=== PATIENT | male | born 1935 | race Caucasian/White ===

== ENCOUNTER → 2016-11-30 | Outpatient (CLI) | payer OTHER, MEDICARE | LOC: ULTRA 08:52 | DX: R41.82 Altered mental status, unspecified (principal); E11.9 Type 2 diabetes mellitus without complications ==

== ENCOUNTER → 2019-05-27 | Outpatient (CLI) | payer OTHER, MEDICARE | LOC: RAD 11:01 | DX: M25.751 Osteophyte, right hip (principal); M16.11 Unilateral primary osteoarthritis, right hip; M48.061 Spinal stenosis, lumbar region without neurogenic claudication; I70.0 Atherosclerosis of aorta; M48.04 Spinal stenosis, thoracic region; M25.78 Osteophyte, vertebrae; M43.16 Spondylolisthesis, lumbar region; M47.816 Spondylosis without myelopathy or radiculopathy, lumbar region ==

== ENCOUNTER 2020-04-24 15:46 | Inpatient (IN) | payer OTHER, MEDICARE ==
[~2020-04-24] VITALS: Ht 167.6 cm; Wt 66.4 kg
[2020-04-24 15:56] VITALS: BP 178/77
--- NOTE | 2020-04-24 16:03 | NUR ---
DR TUBBS CALLED AND STATED SHE WOULD LIKE UPDATES ON PT. CELL [phone]
[2020-04-24 16:26] LABS: ABSOLUTE NEUTROPHILS 5.9 thou/uL (1.4-8.2); BASOPHILS 0.2 % (0.0-2.0); HEMOGLOBIN 11.3 gm/dL (14.0-18.0); LYMPHOCYTES 9.5 % (24.0-44.0); MCH 29.3 pg (26.0-34.0); MCHC 33.2 g/dL (28.0-37.0); MCV 88.2 fL (80.0-100.0); MONOCYTES 7.5 % (1.0-8.0); PLATELET COUNT 275 thou/uL (150-400); POLYS 82.8 % (36.0-66.0); RBC 3.86 mil/uL (4.50-6.00); RDW 14.8 % (10.5-14.5); WBC 7.1 thou/uL (4.0-11.0)
[2020-04-24 16:34] LABS: CALCIUM 9.2 mg/dL (8.5-10.1); CREATININE 1.1 mg/dL (0.7-1.3); POTASSIUM 3.1 mmol/L (3.5-5.1)
[2020-04-24 16:44] LABS: ALBUMIN 3.3 g/dL (3.4-5.0); TOTAL BILIRUBIN 0.5 mg/dL (0.2-1.0); TOTAL PROTEIN 7.7 g/dL (6.4-8.2); TROPONIN-I 0.09 ng/mL (<0.06)
[2020-04-24 17:57] LABS: URINE BLOOD 2+ (Negative); URINE CLARITY CLEAR; URINE COLOR YELLOW; URINE GLUCOSE-RANDOM* NEGATIVE (Negative); URINE KETONES 2+ (Negative); URINE LEUKOCYTES-REFLEX NEGATIVE (Negative); URINE NITRITE-REFLEX NEGATIVE (Negative); URINE PROTEIN (DIPSTICK) 3+ (Negative); URINE SPECIFIC GRAVITY >= 1.030 (1.005-1.035); URINE UROBILINOGEN 0.2 E.U./dl (0.2-1.0)
[2020-04-24 17:59] LABS: ICTOTEST (BILI CONFIRMATORY) Negative (Negative); URINE BILIRUBIN NEGATIVE (Negative)
[2020-04-24 18:17] LABS: SQUAMOUS None Seen /LPF (0-3); URINE RBC 3-10 Few /HPF (0-2); URINE WBC-REFLEX 0-5 Rare /HPF (0-5)
[2020-04-24 18:18] LABS: BACTERIA-REFLEX 1-9 Few /HPF (None Seen); CASTS None Seen /LPF (None Seen); CRYSTALS None Seen /LPF (None Seen)
[2020-04-24 19:33] LABS: TSH 0.819 uIU/mL (0.358-3.740)
[2020-04-24] MEDS ORDERED: LIPITOR 20 MG T20 M1 PO (20:30)
[2020-04-24] MEDS ORDERED: CIPRO250 M2 PO (20:31)
[2020-04-24] MEDS ORDERED: CARDURA2 MG PO (20:31)
[2020-04-24] MEDS ORDERED: ULTRAM50 MG PO (20:32)
[2020-04-24] MEDS ORDERED: QUINAPRIL 20 MG20 MG PO (20:32)
[2020-04-24] MEDS ORDERED: METFORMIN HCL500 M3 PO (20:32)
[2020-04-24 20:34] VITALS: BP 151/71
--- NOTE | 2020-04-24 20:45 | NUR ---
ATTEMPTED TO CALL REPORT, REPORTS RN IN PATIENT ROOM PASSING MED WILL CALL BACK
[2020-04-24 21:16] VITALS: BP 151/71
[2020-04-24 21:34] VITALS: BP 167/87
--- NOTE | 2020-04-25 04:12 | NUR ---
NEW ADMIT FROM ER. AXOX1 HEAVILY CONFUSED AND IMPULSIVE. RIPPED IV OUT, RIPPED FOOD SAFETY MANAGER OUT. GOT OUT OF THE BED WITHOUGH ASSISTANCE AND URINATED ON THE FLOOR. MOVED CLOSER TO NURSING STATION FOR SAFETY AND FREQUENT OBSERVATION. IV ATB STARTED FOR UTI. STILL SHOUTS IN BED BUT SOMEHOW BETTER. NO S/S ACUTE DISTRESS NOTED OR REPORTED AT THIS TIME. WILL CONT TO MONITOR FOR ANY CHAANGES IN CONDITION.
[2020-04-25 05:21] VITALS: BP 180/54
[2020-04-25 07:30] VITALS: BP 147/82
--- NOTE | 2020-04-25 11:50 | NUR ---
Received awake on bed. Due medications given as prescribed, able to swallow meds w/o difficulty. On room air. Vital signs stable. On room air. On telemetry; no complains and signs of chest pain, crushing sensation and heaviness. On regular diet- tolerating well, assisted in eating and drinking; no nausea, no vomiting and no abdominal pain noted. On blood sugar monitoring, taken and recorded accordingly. Incontinent of bowel and bladder, checked frequently and changed as needed. With NS at 75cc/hr, infusing well at L FA. Falls bundle in place; turned on his sides regularly. To continue monitoring patient. Pt seen and examined by Dr Rosario, ordered MRI to be done; MRI staff called back and said that they won't be able to do it today, unless ordered STAT by Neurlogy; Dr Rosario informed and aware. CT scan to be done today, staff available- Dr Rosario updated. To continue monitoring patient.
[2020-04-25 16:05] VITALS: BP 134/69
[2020-04-25 20:48] VITALS: BP 155/70
[2020-04-26 04:45] VITALS: BP 169/70
[2020-04-26 07:35] VITALS: BP 164/83
--- NOTE | 2020-04-26 08:35 | NUR ---
progress tele intact but pt keeps removing and pulling out iv's . high fall risk d/t weakness and impulsivity trying to get oob without assistance. iv antibiotics given as ordered fall precautions in place continue poc
[2020-04-26 09:53] LABS: HEMOGLOBIN 10.5 gm/dL (14.0-18.0); MCH 29.3 pg (26.0-34.0); MCHC 33.7 g/dL (28.0-37.0); RBC 3.57 mil/uL (4.50-6.00); RDW 14.3 % (10.5-14.5); WBC 6.5 thou/uL (4.0-11.0)
[2020-04-26 10:07] LABS: CALCIUM 8.1 mg/dL (8.5-10.1); MAGNESIUM 1.3 mg/dL (1.8-2.4)
[2020-04-26 10:15] LABS: POTASSIUM 2.7 mmol/L (3.5-5.1)
[2020-04-26 13:52] VITALS: BP 109/75
[2020-04-26 15:03] VITALS: BP 140/77
--- NOTE | 2020-04-26 19:29 | NUR ---
RECEIVED A CALL FROM LAB PT'S COVID 19 POSITIVE. CALLED HOUSE SUP AND ELEMENTARY READING TUTOR NOELLE, HOSPITALIST. PT WILL BE MOVED TO ISOLATED UNIT. AWAITING BED ASSIGNMENT.
--- NOTE | 2020-04-26 20:35 | NUR ---
PT ORIENTED TO SELF, VSS, DENIES PAIN. POTASSIUM 2.8 DOCTOR AWARE AND STATED HE WILL PUT IN ORDERS. PATIENT LETHARGIC, REFUSED MEALS EXCEPT DINNER. MEDS GIVEN PER AUG, IV PATENT. SINUS RHYTHM TELE MONITOR. PT NEWLY POSITIVE FOR COVID, PATIENT HAS FEVER. PATIENT MOVED DOWN TO 3 WEST. NO SIGNS OF DISTRESS. WILL CONTINUE TO MONITOR.
[2020-04-26 20:50] VITALS: BP 166/74
[2020-04-27 01:30] VITALS: BP 184/91
--- NOTE | 2020-04-27 02:36 | NUR ---
PT ARRIVED FROM 4WEST THIS SHIFT COVID POSITIVE. AFEBRILE AND 96% ON RA. HIGH BP MEDICATION GIVEN SEE EMAR. URINAL AT BEDSIDE. BSG CHECKED AND INSULIN COVERAGE PROVIDED. PT A&OX2 FORGETFULL. FALL PREC IN PLACE. WILL CONT TO MONITOR.
[2020-04-27 03:00] VITALS: BP 171/87
[2020-04-27 03:50] VITALS: BP 163/88
[2020-04-27 06:11] LABS: HEMATOCRIT 31.5 % (42.0-52.0); HEMOGLOBIN 10.6 gm/dL (14.0-18.0); MCH 28.9 pg (26.0-34.0); MCHC 33.6 g/dL (28.0-37.0); MCV 86.1 fL (80.0-100.0); RBC 3.66 mil/uL (4.50-6.00); RDW 14.2 % (10.5-14.5); WBC 4.1 thou/uL (4.0-11.0)
[2020-04-27 06:34] LABS: ALBUMIN 2.4 g/dL (3.4-5.0); CREATININE 0.8 mg/dL (0.7-1.3); MAGNESIUM 1.7 mg/dL (1.8-2.4); POTASSIUM 3.4 mmol/L (3.5-5.1); TOTAL BILIRUBIN 0.2 mg/dL (0.2-1.0); TOTAL PROTEIN 6.5 g/dL (6.4-8.2)
[2020-04-27 06:35] LABS: % SATURATION 14 % (20-39); IRON 22 ug/dL (65-175); TIBC 155 ug/dL (250-450)
--- NOTE | 2020-04-27 07:06 | EKG ---
[facility] [place] [address] ELECTROCARDIOGRAM REPORT Name: TIMMY LEIJA Room #: 351-P ADM IN M.R.#: [id number] Admission: 04/24/20 Attend Phys: Kate Leblanc Discharge: Date of : 39 Report #: [id number] THIS REPORT FOR: cc: Jayna Holbrook MD, Nora P. MD Santiago, Patrick MD [facility] ~ THIS REPORT FOR: //name// [facility] ED Test Date: 2020-04-24 Test Time: 17:47:29 Pat Name: TIMMY LEIJA Department: Room: [facility] Gender: M Loader Demolder: : 1935 Requested By: Cely Vargas Order Number: [id number] MD: Jam Rodriges Measurements Intervals [place] Rate: 86 P: 40 CA: 192 QRS: -73 QRSD: 95 T: 133 QT: 377 QTc: 451 Interpretive Statements Sinus rhythm Abnormal R-wave progression, late transition Borderline repolarization abnormality Baseline wander in lead(s) V4,V5,V6 No previous ECG available for comparison Electronically Signed On 04-27-2020 7:06:08 AD CLERK by Jam Rodriges [email or web address] <ELECTRONICALLY SIGNED> By: Jam Rodriges MD, FACC 04/27/20 0706 46 46 Jam Rodriges MD, FAC /EPI
--- NOTE | 2020-04-27 13:37 | NUR ---
ASSUMED CARE AT 1335 FROM NURSE GARZA. PT OFF UNIT AT MRI AT THIS TIME.
[2020-04-27 14:34] VITALS: BP 148/72
[2020-04-27 15:24] VITALS: BP 143/66
--- NOTE | 2020-04-27 15:45 | NUR ---
INITIAL ASSESSMENT: LUCERO reviewed chart and spoke with nursing and attending physician. Pt was admitted from home due to weakness/dehydration. Pt was found down at home by his son. Pt was transferred to from due to having positive COVID-19 test. Pt is afebrile and not requiring O2. PT is on IV abx. Neuro/ID/Psych consulted. Pt to have MRI today. Therapy ordered to evaluate pt. Pt lives at home alone. 1 step to enter the home and 12 steps inside. Pt does have a cane. LUCERO spoke with pt's dtr, Diane, via phone. Introduced role of SW. Pt is normally alert/orientated and able to take care of himself at home. Family has noticed a decline in pt's condition over the past couple of years. Pt's dtr is in town from [place]. Pt's son, Ugo, lives locally. Pt has another son who lives out of the country. Pt has not had any HH services in the past or hx of post-acute placement. Pt's PCP is Dr. Jayna Holbrook. Pt's dtr states that family is agreeable with post-acute placement or home with HH and possible private duty care if needed. Pt has a halfway care insurance policy that Diane is looking into, to see what the policy covers. LUCERO discussed Medicare coverage for SNF placement and HH services. Pt's family would like to see how pt does over the next 1-2 days with therapy and receiving recommendations from physicians. LUCERO is following to assist as needed with discharge planning.
--- NOTE | 2020-04-27 19:15 | NUR ---
ASSUMED CARE AT 1300. PT WAS OFF UNIT WHEN RN ARRIVED AND TOOK OVER PT FOR REMAINDER OF SHIFT. ONCE PT ARRIVED BACK TO ROOM PT WAS VERY TALKATIVE WITH RN AND ANSWERED ORIENTATION QUESTIONS APPROPRIATELY. RN DID NOTICE HOWEVER PT REPEATS STORIES THAT HE IS TELLING AND DOES NOT REMEMBER THAT HE ALREADY TOLD THE SAME STORY JUST A FEW MINUTES PRIOR. BED ALARM IS SET AND PT WAS INSTRUCTED TO CALL RN PRIOR TO GETTING OUT OF BED. PT REPEATEDLY STANDS UP AND TRIES TO GET OUT OF BED PRIOR TO CALLING FOR HELP AND SETS OFF BED ALARM. PRIOR TO THIS RN TAKING OVER THIS PT AT 1300, PREVIOUS RN STATED THAT PT HAD PULLED OUT IV. THIS RN REQUESTED NEW IV BE PLACED BY IV TEAM. NEW IV WAS PLACED AT 1730 AND AT 1800 PT HAD ALREADY PULLED OUT 2ND IV OF THE DAY. RN ASKED PT WHY HE PULLED IT OUT AND HE STATED HE DID NOT NEED IT. PT WAS DRESSED IN HOME CLOTHES WHEN THIS RN ASSUMED CARE AND PT HAS SINCE REMOVED ALL CLOTHING OTHER THAN SHIRT. PT'S GAIT IS UNSTEADY AND REQUIRES USE OF GAIT BELT AND 1 ASSIST. PT DOES HOWEVER TRY AND GET UP ON HIS OWN EVEN IF BED ALARM GOES OFF.
[2020-04-27 20:10] VITALS: BP 160/76
--- NOTE | 2020-04-27 21:01 | NUR ---
1300- REPORT RECEIVED FROM ASHOK MAHAN. KAYLA STATES PT REMOVED TELEMETRY AND PULLED OUT HIS IV. KAYLA STATES SHE SPOKE WITH DR RODRIGUEZ AND HE STATED THAT IT WAS OKAY FOR PT NOT TO BE ON TELEMETRY. NO ORDERS HAVE BEEN PLACED IN THE COMPUTER TO REFLECT THIS VERBAL ORDER HOWEVER PT IS REFUSING TO HAVE TELEMETRY PUT BACK ON AT THIS TIME. WHEN PT RETURNED TO FLOOR FROM MRI THIS RN FOUND THAT HE HAD DISCONNECTED HIS IV BUT HAD NOT PULLED THE IV CATHETER OUT FROM UNDER HIS SKIN. THIS RN REMOVED HIS IV CATHETER. THAT WAS BROKEN FROM PATIENT. NEW IV PLACED AT 1730 BY FOREIGN COLLECTION CLERK, PT PULLED OUT NEW IV AT 1800.
[2020-04-28 05:37] VITALS: BP 191/83
--- NOTE | 2020-04-28 07:02 | NUR ---
PATIENT HAS NO IV ACCESS AND HE PULLED IT BEFORE THIS SHIFT STARTS.TRIED TO PLACE ANOTHER ONE BUT HE PULLED HIS ARM AWAY AND SAYS HE'S REFUSING TO BE STUCK.PATIENT ASSISTED TO THE BATHROOM BECAUSE HE REFUSED TO USE THE URINAL.PT UNSTEADY AND USES MUELLER TOO.PATIENT WHEEZING THIS AM AND DUONEB WAS GIVEN BY RT.POC CONTINUED.
[2020-04-28 07:14] VITALS: BP 175/91
[2020-04-28 10:06] LABS: HEMATOCRIT 32.9 % (42.0-52.0); HEMOGLOBIN 10.8 gm/dL (14.0-18.0); MCH 28.6 pg (26.0-34.0); MCHC 32.9 g/dL (28.0-37.0); MCV 87.1 fL (80.0-100.0); RBC 3.78 mil/uL (4.50-6.00); RDW 14.7 % (10.5-14.5); WBC 8.4 thou/uL (4.0-11.0)
[2020-04-28 10:22] LABS: CALCIUM 8.7 mg/dL (8.5-10.1); CREATININE 1.1 mg/dL (0.7-1.3); MAGNESIUM 1.6 mg/dL (1.8-2.4); POTASSIUM 3.3 mmol/L (3.5-5.1)
--- NOTE | 2020-04-28 12:23 | NUR ---
PT CARE ASSUMED AT 0700. A&Ox3. FORGETFUL EPISODES AND IMPULSIVE. NO IV AND OK WITH MD TO KEEP OUT. MEDS SWITCHED TO PO. ONETIME B12 SHOT GIVEN. ACHS WITH LOW SLIDING SCALE IN PLACE. UP WITH ONE ASSIST. PSYCH CONSULT ORDERED FOR COGNITION. FALL PROTOCOL IN PLACE. CALL LIGHT IN REACH. MEDS WHOLE WITH WATER. URINE SAMPLE COLLECTED. COVID POS. PER MD OK TO KEEP OFF OF MONITOR. UP IN THE RECLINER FOR VERY SHORT PERIOD. REFUSES ALL IV MEDICATIONS AND TO HAVE A IV PLACED. WILL CONTINUE TO MONITOR. SHOWER REFUSED. BED CHAGED DUE TO INCONTINENT EPISODES.
[2020-04-28 15:07] VITALS: BP 187/104
--- NOTE | 2020-04-28 15:31 | NUR ---
LUCERO reviewed chart and spoke with nursing and attending physician. Pt remains in Enhanced Isolation due to COVID-19. Pt is afebrile and not requiring O2. Pt is on IV abx. Neurospsych consulted today. SW received copy of pt's DPOA ppwk and placed on pt's chart. Pt refused to work with therapy earlier today. Pt's family to discuss with pt the importance of participating with therapy in order to assess what his discharge need will be. Awaiting input from neuro psych and therapy at this time. LUCERO placed call into pt's room. No answer. LUCERO is following to assist as needed with discharge planning.
[2020-04-28 19:43] VITALS: BP 137/87
--- NOTE | 2020-04-28 22:35 | NUR ---
PT ALERT RESTING IN BED. PT FREQUENTLY AND IMPULSIVELY GETS OOB, CONFUSED R/T LOCATION AND TIME. PRN PROVIDED. PT TAKING OFF CLOTHES AND SHEETS. BED ALARM ON. PT COMPLIANT WITH MEDS AND SNACK. PT LUNGS ARE CLEAR BUT NASAL NOISE AND GUTTERAL NOISE CLEARED WHEN HE COUGHS. PT VERBALLY AGGRESSIVE AFTER INSULIN BUT ABLE TO BE REDIRECTED. PT REPEATS THE SAME QUESTIONS AND STATEMENTS RE ARE YOU , DO YOU HAVE ANY CHILDREN, WILL YOU GET IN BED WITH ME.
[2020-04-29 05:21] VITALS: BP 136/93
--- NOTE | 2020-04-29 07:43 | NUR ---
BPCI LETTER ISSUED TO PATIENT IN CONJUNCTION WITH ADMISSION PACKET COPY GIVEN BY REGISTRATION
[2020-04-29 08:34] VITALS: BP 192/98
[2020-04-29 08:40] VITALS: BP 186/93
--- NOTE | 2020-04-29 10:05 | NUR ---
PATIENT RESTING IN BED IS NOT COMPLIANT WITH MEDS BUT WITH ENCOURAGEMENT TOOK MEALS STATES DOES NOT WANT TO BE IN HOSPITAL. STATES NO PAIN OR RESP DISTRESS AT THIS TIME,
--- NOTE | 2020-04-29 14:21 | NUR ---
PATIENT SPOKE WITH DAUGHTER BREA [phone] THIS NURSE ALSO SPOKE WITH DAUGHTER WHO WILL BRING LONGER LONGER PHONE CORD SO PATIENT CAN CHARGE CELL PHONE. PT FORGETS THINGS AND IS CONFUSED AT TIMES.
--- NOTE | 2020-04-29 15:04 | NUR ---
LUCERO reviewed chart and spoke with nursing and attending physician. Pt remains in ENhanced Isolation due to COVID-19. Pt is afebrile and not requiring O2. Pt is on IV abx. Neurospych consult pending. LUCERO spoke with pt's dtr, Diane, via phone to provide update and discuss discharge plan. Pt's dtr states they are wanting to see how pt does with therapy and input from neuropsych. LUCERO discussed with therapy mgr to have therapists call pt's dtr/family if pt refuses therapy. Diane was going to call pt earlier today to encourage pt to participate. LUCERO discussed plans for home with HH/24 hour care v. post acute care stay. Pt's dtr states they are open to all suggestions at this time. Options provided for HH/private duty and SNF options. Pt's dtr requests referrals to be sent to [facility] and [facility]. 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 LUCERO faxed referral to [facility] and spoke with Reymundo who will review and contact family regarding LTC policy. LUCERO faxed referral to [facility] and notified Judith in admissions or new referral. Awaiting input from therapy adn neuropsych at this time. LUCERO is following to assist as needed with discharge planning.
[2020-04-29 16:01] VITALS: BP 151/81
[2020-04-29 19:27] VITALS: BP 147/80
--- NOTE | 2020-04-29 21:16 | HC ---
[facility] [place] [place] [address] CONSULTATION Name: TIMMY LEIJA Room #: 351-P [facility] IN ..#: [id number] Admission: 04/24/20 Attend Phys: Kate Leblanc Discharge: Date of : 39 Report #: [id number] THIS REPORT FOR: cc: Jayna Holbrook MD, Nora P. MD Geha,Beto Schrader MD ~ DATE OF SERVICE: 04/27/2020 INFECTIOUS DISEASE CONSULTATION REASON FOR CONSULTATION: I was asked to evaluate concerning COVID-19 infection. HISTORY OF PRESENT ILLNESS: The patient is an 85-year-old with underlying history of diabetes and chronic prostatitis. He has had issues with altered mental status and falls. On 04/26/2020, he fell in the morning. He was helped up by his son. He fell later in the afternoon and was brought in by EMS. He was unable to get up. He lives alone, but is cared for by his son. He does ambulate with a cane on occasion. He has had a history of diabetes, hypertension and coronary artery disease. He reports no loss of consciousness. Denies any head injury. He does have chronic prostatitis and takes Cipro on a regular basis. Denies any fever, chills or sweats. He was doing reasonably well this afternoon, but this evening again became confused and inappropriate. He was evaluated with the nursing staff at the bedside. The patient was disoriented. He was able to tell me history of his past, but it was poor on current events. REVIEW OF SYSTEMS: A 14-point review of system was negative other than what has been described above. ALLERGIES: CODEINE. MEDICATIONS: As noted on his MAR. PAST MEDICAL HISTORY: Chronic prostatitis, sciatica, diabetes, [place], chronic back pain. SOCIAL HISTORY: He is a nonsmoker, no significant alcohol intake. PHYSICAL EXAMINATION: VITAL SIGNS: He was afebrile and hemodynamically stable. GENERAL: He is alert and cooperative, but confused. SKIN: With several abrasions to his left lower leg. No palpable adenopathy. EYES: Without scleral icterus. MOUTH: Without mucositis. [facility] [address] [place] [address] CONSULTATION Name: TIMMY LEIJA Room #: 351-P [facility] IN ..#: [id number] Admission: 04/24/20 Attend Phys: Kate Leblanc Discharge: Date of : 39 Report #: [id number] NECK: Supple. LUNGS: Clear. HEART: Regular without murmur, gallop or rub. ABDOMEN: Soft and nontender. No hepatosplenomegaly or mass. GENITOURINARY: External genitalia without mass or lesion. RECTAL: Not performed. EXTREMITIES: With no clubbing, cyanosis or edema. BACK: Nontender with no spinal or CVA tenderness. NEUROLOGIC: Nonfocal. He was a bit unsteady on his gait, but cranial nerves were intact and strength in upper and lower extremities was symmetric. Mood was without anxiety or depression. LABORATORY DATA: Reviewed. MICROBIOLOGY DATA: Reviewed. CT scan of his head and chest x-ray reviewed. MRI scan of the spine reviewed. IMPRESSION: COVID-19 infection. Basilar atelectasis versus infiltrate, possible community-acquired pneumonia, confusional state. Unsteady with multiple falls. Underlying spinal stenosis. Chronic urinary tract infection, suspecting chronic prostatitis. RECOMMENDATION: We will continue ceftriaxone and azithromycin for now. He does not fulfill criteria for antiviral therapy at this point, although would treat him with H2 ulysses and multiple vitamins. We will check vitamin D level. We will await Neurology service evaluation. <ELECTRONICALLY SIGNED> By: Beto Sexton MD 04/29/202115 35 01 Beto Sexton MD /nt
[2020-04-30 03:50] VITALS: BP 158/79
--- NOTE | 2020-04-30 04:47 | NUR ---
ASSUMED CARE OF PT AT 1900HRS. PT AOX3-4 AND IS FORGETFUL. FALL PRECAUTION IN PLACE BUT PT IS NOT COMPLIENT. PT DENIES PAIN, NAUSEA OR SOA. ASSESSMENT CHARTED. PT IS ON RA IN M/S STATUS. PT WAS ABLE TO GET COMFORTABLE AND SLEEP PART OF THE SHIFT. VSS AND NO S/S OF ACUTE DISTRESS. WILL CONTINUE TO MONITOR FOR CHANGES.
[2020-04-30 07:22] VITALS: BP 148/89
[2020-04-30 15:19] VITALS: BP 171/93
[2020-04-30 18:47] VITALS: BP 148/70
[2020-04-30 19:38] VITALS: BP 118/53
--- NOTE | 2020-04-30 23:41 | NUR ---
PT CONFUSED ATTEMPTS TO GET OOB FREQUENTLY DESPITE HALDOL AND MELATONIN. INC OF URINE IN LG AMTS IN THE BED. PT IS FORGETFUL AND THINKS HE NEEDS TO URINATE ALL THE TIME. BED ALARM IS ON. WILL CONTINUE TO MONITOR FOR CHANGES, VSS.
[2020-05-01 04:52] VITALS: BP 156/90
--- NOTE | 2020-05-01 05:47 | NUR ---
PT CONTINUES TO BE CONFUSED AND ATTEMPTS TO GET OOB WITHOUT HELP SEVERAL TIMES. HE FINALLY FELL ASLEEP LATE THIS AM AROUND 0400. BED ALARM IS ON. REINFORCED FALL PRECAUTIONS SEVERAL TIMES.
[2020-05-01 07:50] VITALS: BP 147/73
[2020-05-01 08:06] VITALS: BP 147/73
--- NOTE | 2020-05-01 11:30 | NUR ---
discussed during prime time via phone call with bedside nurse "md said dc yunior"/bedside nurse. cm team to set up dc for today to skilled at [facility].
[2020-05-01] MEDS ORDERED: VITAMIN D325 MC1 PO (12:05)
[2020-05-01] MEDS ORDERED: VITAMIN C1000 MG PO (12:05)
[2020-05-01] MEDS ORDERED: B-12500 MCG PO (12:05)
[2020-05-01] MEDS ORDERED: ZINC SULFATE 2220 MG PO (12:07)
[2020-05-01] MEDS ORDERED: LOPRESSOR50 PO (12:07)
--- NOTE | 2020-05-01 12:56 | NUR ---
PT DISCHARGING TODAY TO [facility]ED [facility]. FAXED DC ORDERS/SUMMARY TO FACILITY SPOKE WITH CHRISTIE IN ADM SHE RECEIVED ORDERS AND ARRANGED TRANSPORT BY [facility] FOR [id number] TODAY. NOTIFIED PT'S SON (IRIS) OF DC AND TIME OF TRANSPORT HE WILL NOTIFY HIS SISTER. UNIT NOTIFIED AND CHART COPY PER US RN TO CALL REPORT TO [phone].
[2020-05-01 13:25] LABS: URINE BILIRUBIN NEGATIVE (Negative); URINE BLOOD TRACE (Negative); URINE CLARITY CLEAR; URINE COLOR YELLOW; URINE GLUCOSE-RANDOM* NEGATIVE (Negative); URINE KETONES NEGATIVE (Negative); URINE LEUKOCYTES-REFLEX TRACE (Negative); URINE NITRITE-REFLEX NEGATIVE (Negative); URINE PROTEIN (DIPSTICK) NEGATIVE (Negative); URINE SPECIFIC GRAVITY <= 1.005 (1.005-1.035); URINE UROBILINOGEN 0.2 E.U./dl (0.2-1.0)
[2020-05-01] MEDS ORDERED: DEPAKOTE 250MG250 M1 PO (14:25)
[2020-05-01] MEDS ORDERED: SEROQUEL 50 MG50 MG PO (14:30)
--- NOTE | 2020-05-01 16:36 | NUR ---
RN ASSUMED PT'S CARE AT 0700AM, PT IS CONFUSED, PT IS IMPULSIVE AT TIME, PT CAN FOLLOW SOME COMMANDS, PT'S VS ARE STABLE, PT DOES NOT HAVE SOB AND FEVER, RN RECEIVED ORDER TO DC PT TO [facility], RN HAS GIVING REPORT , PT'S FAMILY HAS NOTIFIED, PT JUST LEFT FLOOR DC TO REHAB CENTER BY W/C AT 1640PM.
[2020-05-02 04:06] LABS: GLYCOHEMOGLOBIN (HGB A1C) 7.2 % (4.8-5.6)
== END 2020-05-01 16:45 | DRG 871 ==
LOC: ER 15:46 → 3W 19:32 → 4W 19:32 → EROBS 19:32 → 4W 21:14 → 3W 04-26 19:50
PROVIDERS: Hospitalist; Internal Medicine; Physician Assistant; ADMIT Hospitalist; ATTEND Hospitalist
DX: A41.89 Other specified sepsis (principal); U07.1 COVID-19; J12.89 Other viral pneumonia; G93.41 Metabolic encephalopathy; N39.0 Urinary tract infection, site not specified; G95.9 Disease of spinal cord, unspecified; J98.11 Atelectasis; R27.0 Ataxia, unspecified; G83.14 Monoplegia of lower limb affecting left nondominant side; E11.9 Type 2 diabetes mellitus without complications; D64.9 Anemia, unspecified; E87.6 Hypokalemia; E86.0 Dehydration; G89.29 Other chronic pain; R41.9 Unspecified symptoms and signs involving cognitive functions and awareness; I10 Essential (primary) hypertension; M54.5 Low back pain; Z60.2 Problems related to living alone; M48.02 Spinal stenosis, cervical region; M48.061 Spinal stenosis, lumbar region without neurogenic claudication; E53.8 Deficiency of other specified B group vitamins; E87.8 Other disorders of electrolyte and fluid balance, not elsewhere classified; G47.00 Insomnia, unspecified; E55.9 Vitamin D deficiency, unspecified; M47.9 Spondylosis, unspecified; F09 Unspecified mental disorder due to known physiological condition; G31.9 Degenerative disease of nervous system, unspecified; Z79.82 Long term (current) use of aspirin; Z79.899 Other long term (current) drug therapy; Z88.6 Allergy status to analgesic agent
CPT/HCPCS: 10040; 10779; 10879

== ENCOUNTER 2020-06-27 17:10 | Inpatient (IN) | payer OTHER, MEDICARE ==
[~2020-06-27] VITALS: Ht 152.4 cm; Wt 59.9 kg
--- NOTE | ~2020-06-27 | EMS ---
[address] [address] EMS Patient Care Report Name: TIMMY LEIJA Room #: REG MADDI Munoz#: [id number] Admission: 06/27/20 Attend Phys: Discharge: Date of : 39 Report #: [id number] THIS REPORT FOR: //name// Report Transmitted: 06/27/2020 18:43 EMS Care Summary [facility] MED-ACT Incident [id number] @ 06/27/2020 16:39 Incident Location [address] [place] [address] Patient TIMMY LEIJA Male, 85 Years 1935 Patient Address [address] [place] [address] Patient History Urinary Tract Infection (UTI),Hypokalemia,Type 2 Diabetes, Patient Allergies Codeine, Patient Medications Cyanocobalamin Co57, Atorvastatin, Chief Complaint "He is more altered than normal" Disposition Transported No Lights/[place] Dispatch Reason Sick Person Transported To [facility] Narrative Complaint: "He is more altered than normal" and not taking his medications [address] [address] EMS Patient Care Report Name: TIMMY LEIJA Room #: REG Tammy#: [id number] Admission: 06/27/20 Attend Phys: Discharge: Date of : 39 Report #: [id number] History: MD on scene advises EMS that the patient is more altered than normal and that he has been refusing his medications for the past few days. She reports that she would like him to go the ER for an evaluation and possibly get a "bag of fluids". She reports that he was less confused when she saw him last week and appears more confused today. They report his blood glucose to be 417 mg/dl. Pt has no complaints of pain and is yelling at anyone that is around him "I want to go to my room!". When patient is advised that he needs to go to the hospital, he is aggravated and yelling "come on, lets go". Assessment: Pt found sitting upright in wheelchair, pt has no obvious s / s of acute distress, no obvious s / s of trauma noted. Rendered Treatment: Pt evaluated, history obtained, vitals attempted but difficult time obtaining BP from monitor. Pt assisted to cot, secured and moved to unit, manual BP obtained. Transport: Vitals re-assessed, bio-com report given to ER. Destination: Pt transported to [facility] ER via EMS. Pt care transferred to RN in ER room 12 with no changes en route. Pt moved to ER bed via 3 person sheet drag. Initial Vitals @16:57P: 82,R: 18,BP: 80/50,Pain: 0/10,GCS: 14,Temp: 98.1F,Glucose: 417,SpO2: 97,Revised Trauma: 11, Assessments @17:00MENTAL:Person Oriented,Place Oriented,SKIN:HEENT:Head/Face: No Abnormalities,Eyes: No Abnormalities,LUNG SOUNDS:General: No Abnormalities,ABDOMEN:General: No Abnormalities,PELVIS//GI:EXTREMITIES:Left Arm: No Abnormalities,Right Arm: No Abnormalities,Left Leg: No Abnormalities,Right Leg: No Abnormalities,PULSE:NEURO:No Abnormalities, Impression Altered Mental Status Procedures @16:55Surgical Mask on PatientResponse: Unchanged Timeline 16:37,Call Received 16:37,Psap Call 16:39,Dispatched 16:39,En Route 16:43,On Scene [address] [address] EMS Patient Care Report Name: TIMMY LEIJA Room #: REG [facility].R.#: [id number] Admission: 06/27/20 Attend Phys: Discharge: Date of : 39 Report #: [id number] 16:47,At Patient 16:55,Surgical Mask on Patient,Response: Unchanged 16:57,BP: 80/50 M,PULSE: 82,RR: 18 R,SPO2: 97 Ox,ETCO2: ,B,PAIN: 0,GCS: 14, 16:58,Depart Scene 17:06,At Destination 17:26,Call Closed Disclaimer v1.1 Copyright 2020 [employer] This EMS Care Summary contains data elements from the applicable legal record (which may be displayed differently). It is designed to provide pertinent information for the following purposes: continuity of care, clinical quality, and state data reporting. The complete legal record is available to ED staff and administrators of the receiving hospital in [employer]'s Patient Tracker. All data is provided "as is."
--- NOTE | ~2020-06-27 | EMS ---
[address] [address] EMS Patient Care Report Name: TIMMY LEIJA Room #: REG MADDI Munoz#: [id number] Admission: 06/27/20 Attend Phys: Discharge: Date of : 39 Report #: [id number] THIS REPORT FOR: //name// Report Transmitted: 06/27/2020 17:48 EMS Care Summary [facility] MED-ACT Incident [id number] @ 06/27/2020 16:39 Incident Location [address] [place] [address] Patient TIMMY LEIJA Male, 85 Years 1935 Patient Address [address] [place] [address] Patient History Urinary Tract Infection (UTI),Hypokalemia,Type 2 Diabetes, Patient Allergies Codeine, Patient Medications Cyanocobalamin Co57, Atorvastatin, Chief Complaint "He is more altered than normal" Disposition Transported No Lights/[place] Dispatch Reason Sick Person Transported To [facility] Narrative Complaint: "He is more altered than normal" and not taking his medications [address] [address] EMS Patient Care Report Name: TIMMY LEIJA Room #: REG Tammy#: [id number] Admission: 06/27/20 Attend Phys: Discharge: Date of : 39 Report #: [id number] History: MD on scene advises EMS that the patient is more altered than normal and that he has been refusing his medications for the past few days. She reports that she would like him to go the ER for an evaluation and possibly get a "bag of fluids". She reports that he was less confused when she saw him last week and appears more confused today. They report his blood glucose to be 417 mg/dl. Pt has no complaints of pain and is yelling at anyone that is around him "I want to go to my room!". When patient is advised that he needs to go to the hospital, he is aggravated and yelling "come on, lets go". Assessment: Pt found sitting upright in wheelchair, pt has no obvious s / s of acute distress, no obvious s / s of trauma noted. Rendered Treatment: Pt evaluated, history obtained, vitals attempted but difficult time obtaining BP from monitor. Pt assisted to cot, secured and moved to unit, manual BP obtained. Transport: Vitals re-assessed, bio-com report given to ER. Destination: Pt transported to [facility] ER via EMS. Pt care transferred to RN in ER room 12 with no changes en route. Pt moved to ER bed via 3 person sheet drag. Initial Vitals @16:57P: 82,R: 18,BP: 80/50,Pain: 0/10,GCS: 14,Temp: 98.1F,Glucose: 417,SpO2: 97,Revised Trauma: 11, Assessments @17:00MENTAL:Person Oriented,Place Oriented,SKIN:HEENT:Head/Face: No Abnormalities,Eyes: No Abnormalities,LUNG SOUNDS:General: No Abnormalities,ABDOMEN:General: No Abnormalities,PELVIS//GI:EXTREMITIES:Left Arm: No Abnormalities,Right Arm: No Abnormalities,Left Leg: No Abnormalities,Right Leg: No Abnormalities,PULSE:NEURO:No Abnormalities, Impression Altered Mental Status Procedures @16:55Surgical Mask on PatientResponse: Unchanged Timeline 16:37,Call Received 16:37,Psap Call 16:39,Dispatched 16:39,En Route 16:43,On Scene [address] [address] EMS Patient Care Report Name: TIMMY LEIJA Room #: REG [facility].R.#: [id number] Admission: 06/27/20 Attend Phys: Discharge: Date of : 39 Report #: [id number] 16:47,At Patient 16:55,Surgical Mask on Patient,Response: Unchanged 16:57,BP: 80/50 M,PULSE: 82,RR: 18 R,SPO2: 97 Ox,ETCO2: ,B,PAIN: 0,GCS: 14, 16:58,Depart Scene 17:06,At Destination 17:26,Call Closed Disclaimer v1.1 Copyright 2020 [employer] This EMS Care Summary contains data elements from the applicable legal record (which may be displayed differently). It is designed to provide pertinent information for the following purposes: continuity of care, clinical quality, and state data reporting. The complete legal record is available to ED staff and administrators of the receiving hospital in [employer]'s Patient Tracker. All data is provided "as is."
[~2020-06-27 17:10] MED LIST: B-12500 MCG PO; CARDURA2 MG PO; CIPRO250 M2 PO; DEPAKOTE 250MG250 M1 PO; LIPITOR 20 MG T20 M1 PO; LOPRESSOR50 PO; METFORMIN HCL500 M3 PO; QUINAPRIL 20 MG20 MG PO; SEROQUEL 50 MG50 MG PO; ULTRAM50 MG PO; VITAMIN C1000 MG PO; VITAMIN D325 MC1 PO; ZINC SULFATE 2220 MG PO
[2020-06-27 17:11] VITALS: BP 97/46
[2020-06-27 17:41] LABS: URINE BILIRUBIN NEGATIVE (Negative); URINE BLOOD TRACE (Negative); URINE CLARITY CLEAR; URINE COLOR YELLOW; URINE GLUCOSE-RANDOM* 3+ (Negative); URINE KETONES NEGATIVE (Negative); URINE LEUKOCYTES-REFLEX NEGATIVE (Negative); URINE NITRITE-REFLEX NEGATIVE (Negative); URINE PROTEIN (DIPSTICK) NEGATIVE (Negative); URINE SPECIFIC GRAVITY 1.015 (1.005-1.035); URINE UROBILINOGEN 0.2 E.U./dl (0.2-1.0)
[2020-06-27 19:18] LABS: ABSOLUTE NEUTROPHILS 7.2 thou/uL (1.4-8.2); BASOPHILS 0.5 % (0.0-2.0); EOSINOPHILS 1.2 % (0.0-3.0); HEMATOCRIT 31.2 % (42.0-52.0); LYMPHOCYTES 15.1 % (24.0-44.0); MCH 29.1 pg (26.0-34.0); MONOCYTES 6.9 % (1.0-8.0); PLATELET COUNT 442 thou/uL (150-400); POLYS 76.3 % (36.0-66.0); RBC 3.43 mil/uL (4.50-6.00); WBC 9.5 thou/uL (4.0-11.0)
[2020-06-27 19:28] LABS: ANION GAP 8 mmol/L (7-16); BUN 56 mg/dL (7-18); CALCIUM 9.4 mg/dL (8.5-10.1); CHLORIDE 102 mmol/L (98-107); CO2 27 mmol/L (21-32); CREATININE 2.2 mg/dL (0.7-1.3); GLUCOSE 249 mg/dL (74-106); POTASSIUM 5.2 mmol/L (3.5-5.1); SODIUM 137 mmol/L (136-145)
[2020-06-27 19:39] LABS: ALBUMIN 2.9 g/dL (3.4-5.0); SGOT 20 U/L (15-37); SGPT 34 U/L (16-63); TOTAL BILIRUBIN 0.4 mg/dL (0.2-1.0); TOTAL PROTEIN 6.7 g/dL (6.4-8.2); TROPONIN-I <0.06 ng/mL (<0.06)
[2020-06-28] VITALS (7 sets, daily range): BP systolic 97–108; BP diastolic 40–64
[2020-06-28] MEDS ORDERED: DONEPEZIL HCL 55 M1 PO (01:43)
[2020-06-28] MEDS ORDERED: TRAZODONE HCL50 MG PO (01:47)
[2020-06-28] MEDS ORDERED: MIRTAZAPINE7.5 MG PO (01:49)
--- NOTE | 2020-06-28 07:13 | NUR ---
PER NETWORK ACCOUNT MANAGER, PT HAS BEEN CLEARED FOR ADMISSION BY VS RN
--- NOTE | 2020-06-28 10:17 | EKG ---
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 : 1935 Requested By: Rodrick Hardy Order Number: [id number] MD: Jean Paul Brunner Measurements Intervals [place] Rate: 72 P: 27 MT: 202 QRS: -64 QRSD: 87 T: 117 QT: 421 QTc: 461 Interpretive Statements Sinus rhythm Left anterior fascicular block Abnormal R-wave progression, late transition Abnrm T, consider ischemia, anterolateral lds Baseline wander in lead(s) V1 Compared to ECG 04/24/2020 17:47:29 Electronically Signed On 06-28-2020 10:17:37 LONGWALL MACHINE OPERATOR HELPER by Jean Paul Brunner [email or web address] <ELECTRONICALLY SIGNED> By: Jean Paul Brunner MD 06/28/20 1017 25 25 Jean Paul Brunner MD /EPI
--- NOTE | 2020-06-28 11:29 | NUR ---
HEPARIN TO BE HELD PER DR CORADO
[2020-06-29 05:58] VITALS: BP 105/60
--- NOTE | 2020-06-29 07:49 | NUR ---
PATIENT CARE WERE ASSUMED AT [facility]. PATIENT WAS ASSESSED AND MEDS WERE PASSED ALLOWED BY PATIENT. HE WOUND NOT LET ME GIVE HEPARIN SHOT AFER HE DID AGREE. YELLS TO GET OUT OF HIS ROOM. WAS ABLE TO CARRY SOME ORDERS OUT. IF MOST MED COUD BE IVP IT WOULD BE HELPFUL FOR NURSING. PATIENT IS FROM [facility].
[2020-06-29 08:39] VITALS: BP 119/49
[2020-06-29 09:59] LABS: ABSOLUTE NEUTROPHILS 6.1 thou/uL (1.4-8.2); BASOPHILS 0.9 % (0.0-2.0); EOSINOPHILS 2.1 % (0.0-3.0); HEMATOCRIT 28.9 % (42.0-52.0); HEMOGLOBIN 9.3 gm/dL (14.0-18.0); LYMPHOCYTES 16.5 % (24.0-44.0); MCH 29.6 pg (26.0-34.0); MCHC 32.4 g/dL (28.0-37.0); MCV 91.6 fL (80.0-100.0); MONOCYTES 4.7 % (1.0-8.0); POLYS 75.8 % (36.0-66.0); RBC 3.15 mil/uL (4.50-6.00); RDW 17.5 % (10.5-14.5)
[2020-06-29 10:00] LABS: PLATELET COUNT 360 thou/uL (150-400)
--- NOTE | 2020-06-29 10:04 | NUR ---
PATIENT REFUSES CARE. REFUSES REASSESSMENT FROM RN.
[2020-06-29 10:16] LABS: CALCIUM 8.6 mg/dL (8.5-10.1); CREATININE 1.6 mg/dL (0.7-1.3); POTASSIUM 4.1 mmol/L (3.5-5.1)
[2020-06-29 11:39] VITALS: BP 112/49
[2020-06-29 16:35] VITALS: BP 112/44
[2020-06-29 20:03] VITALS: BP 119/70
[2020-06-30 07:00] VITALS: BP 140/70
[2020-06-30 07:30] VITALS: BP 130/67
--- NOTE | 2020-06-30 07:52 | NUR ---
PT SLEPT SOME OF THE NIGHT. ALERT TO SELF; SOMETIMES PLACE. NEEDS REOREINTED FREQUENTLY. PT REFUSED CARE IN THE MIDDLE OF THE NIGHT AND ASKED WHY I WAS IN HIS HOUSE. ASSESSMENTS CHARTED. MEDS GIVEN PER EMAR. PT HAS JERNIGAN. FALL PRECAUTIONS IN PLACE. CONTINUING TO ASSESS ACCORDING TO POC.
[2020-06-30 08:56] LABS: HEMATOCRIT 29.9 % (42.0-52.0); HEMOGLOBIN 9.9 gm/dL (14.0-18.0); MCH 30.4 pg (26.0-34.0); MCHC 33.1 g/dL (28.0-37.0); MCV 91.8 fL (80.0-100.0); RBC 3.26 mil/uL (4.50-6.00); RDW 17.2 % (10.5-14.5); WBC 7.4 thou/uL (4.0-11.0)
[2020-06-30 09:27] LABS: ALBUMIN 2.5 g/dL (3.4-5.0); CALCIUM 8.7 mg/dL (8.5-10.1); CREATININE 1.4 mg/dL (0.7-1.3); PHOSPHORUS 2.4 mg/dL (2.6-4.7); POTASSIUM 3.9 mmol/L (3.5-5.1)
[2020-06-30 12:00] VITALS: BP 127/69
--- NOTE | 2020-06-30 15:01 | NUR ---
Patient admits from [facility] with AMS. Patient has been to [facility] for skilled rehab and recently transferred to [facility]. Patient with hx of COVID positive. Patient sleeping. Sp with Tatianna at [facility] and son Ugo. Plan for patient to return to [facility] once stable. [facility] does not need a covid test for return. DC facilities planner to update with clinical. Therapy evals in process. Casemgt following.
[2020-06-30 16:00] VITALS: BP 141/55
--- NOTE | 2020-06-30 16:42 | NUR ---
FAXED CLINICAL UPDATE TO [facility] RECEIVED CONFIRMATION AND LEFT MSG WITH ADM.
--- NOTE | 2020-06-30 20:11 | NUR ---
ASSUMED CARE OF PT AT SHIFT CHANGE. ASSESSMENTS CHARTED. MEDS GIVEN PER AUG. PT ALERT TO SELF, CONFUSED, FORGETFUL. PT APPROPRIATE MOST OF SHIFT. PT UNSTABLE ON FEET, X1 ASSIST WITH WALKER. WORKING WITH OT, PT. WILL CONTINUE TO MONITOR AND FOLLOW POC.
[2020-06-30 20:22] VITALS: BP 141/55
[2020-06-30 20:45] VITALS: BP 145/70
[2020-07-01 04:55] VITALS: BP 146/56
--- NOTE | 2020-07-01 07:47 | NUR ---
ASSUMED OT CARE AT 1900. AT SHIFT CHANGE PT SEEMED PLEASANT, WHEN I WENT TO PT/S ROOM AROUNG 2119, PT WAS DISPLEASED. HE TOLD RN "GET OUT NOW AND SHUT THE DOOR AND NEVER COME BACK, I DONT WANT ANY MEDS AND I AM NOT IN PAIN" HENCE SOME NOC MED WERE NOT GIVEN, PT IS STABLE ON THE MONITOR NO COMPLAINTS WILL CONTINUE TO MONITOR.
[2020-07-01 07:54] LABS: HEMATOCRIT 28.8 % (42.0-52.0); HEMOGLOBIN 9.5 gm/dL (14.0-18.0); MCH 29.7 pg (26.0-34.0); MCHC 32.9 g/dL (28.0-37.0); MCV 90.4 fL (80.0-100.0); RBC 3.19 mil/uL (4.50-6.00); RDW 17.2 % (10.5-14.5); WBC 7.4 thou/uL (4.0-11.0)
[2020-07-01 08:00] VITALS: BP 145/75
[2020-07-01 08:07] LABS: ALBUMIN 2.4 g/dL (3.4-5.0); CALCIUM 8.6 mg/dL (8.5-10.1); CREATININE 1.3 mg/dL (0.7-1.3); PHOSPHORUS 2.9 mg/dL (2.6-4.7)
--- NOTE | 2020-07-01 11:48 | NUR ---
PT. HAD A LARGE BM THIS AM, INCONTINENT OF BOWEL. WE AMBULATED HIM WIHT A WALKER TO THE SHOWER TO RINSE HIM OFF HE WAS HEAVILY SATURATED IN HIS STOOL. HE WAS COOPERATIVE BUT ONLY BECAUSE HE REALLY WANTED TO SHOWER OTHERWISE HE TENDS TO BE OBSTINATE IN HIS CARE. LFA IV STILL INFUSING NS @75 ML/HR.
[2020-07-01 11:54] VITALS: BP 164/77
[2020-07-01 17:18] VITALS: BP 167/75
--- NOTE | 2020-07-01 17:31 | NUR ---
[facility]. Sp with RN at [place]. Alerted her to review updates. Left son message possible dc in am.
[2020-07-01 20:17] VITALS: BP 144/74
[2020-07-02 04:45] VITALS: BP 164/74
[2020-07-02 07:45] VITALS: BP 140/71
[2020-07-02 08:08] LABS: HEMATOCRIT 28.8 % (42.0-52.0); HEMOGLOBIN 9.7 gm/dL (14.0-18.0); MCHC 33.7 g/dL (28.0-37.0); RBC 3.23 mil/uL (4.50-6.00); RDW 16.9 % (10.5-14.5); WBC 8.7 thou/uL (4.0-11.0)
[2020-07-02 08:15] VITALS: BP 140/71
[2020-07-02 08:19] LABS: CALCIUM 8.9 mg/dL (8.5-10.1); CREATININE 1.2 mg/dL (0.7-1.3)
[2020-07-02 11:45] VITALS: BP 140/77
[2020-07-02] MEDS ORDERED: FLOMAX0.4 MG PO (11:55)
[2020-07-02] MEDS ORDERED: AUGMENTIN 875-1 EACH PO (11:56)
[2020-07-02 12:15] VITALS: BP 140/77
--- NOTE | 2020-07-02 13:19 | NUR ---
FAXED [facility] PATIENT'S DISCHARGE SUMMARY/ORDERS, PROGRESS NOTES AND OT,PT,ST ASSESSMENTS. AR[facility]ANGED [facility] TRASPORTATION WITH [facility] TO CUT OFF SAW GRADER PATIENT AT 3:00 PM TODAY, 07/02/20. CONTACTED FAMILY - IRIS/SON REGARDING PATIENT'S PLANS AND TIME OF DISCHARGE. HE STATED HE WAS GOING TO SEE PATIENT BEFORE DISCHARGE TO GIVE HIM A JACKET AND VISIT HIS FATHER. [facility] NOTIFIED OF TIME OF DISCHARGE AND CHART COPY COMPLETED. [facility] P [phone]; FAX [phone]
--- NOTE | 2020-07-02 16:24 | NUR ---
PT CARE ASSUMED AT 0700. ASSESSMENTS CHARTED. MEDICATIONS CHARTED. LFA IV. SINUS RHYTHM. JERNIGAN/BEDPAN. ACHS. DEMENTIA, MILD. PT TRANSFERRED TO [facility]. TELEMETRY D/C'D. IV D/C'D. JERNIGAN D/C'D
== END 2020-07-02 16:12 | DRG 871 ==
LOC: ER 17:10 → 2N 21:46 → EROBS 21:46 → 2N 06-28 20:54
PROVIDERS: Hospitalist; Nurse Practitioner Family; Physician Assistant; ADMIT Hospitalist; ATTEND Hospitalist
DX: A41.9 Sepsis, unspecified organism (principal); G93.41 Metabolic encephalopathy; N17.0 Acute kidney failure with tubular necrosis; J69.0 Pneumonitis due to inhalation of food and vomit; F02.81 Dementia in other diseases classified elsewhere, unspecified severity, with behavioral disturbance; I69.354 Hemiplegia and hemiparesis following cerebral infarction affecting left non-dominant side; E11.9 Type 2 diabetes mellitus without complications; I95.9 Hypotension, unspecified; G89.29 Other chronic pain; M54.9 Dorsalgia, unspecified; G30.9 Alzheimer's disease, unspecified; Z66 Do not resuscitate; E86.0 Dehydration; E87.5 Hyperkalemia; R33.9 Retention of urine, unspecified; I25.2 Old myocardial infarction; Z88.6 Allergy status to analgesic agent; Z79.899 Other long term (current) drug therapy
CPT/HCPCS: 10081

== ENCOUNTER 2020-07-05 04:24 | Emergency (ER) | payer OTHER, MEDICARE ==
[~2020-07-05] VITALS: Ht 160 cm; Wt 74.8 kg
[~2020-07-05 04:24] MED LIST changes: +AUGMENTIN 875-1 EACH PO; +DONEPEZIL HCL 55 M1 PO; +FLOMAX0.4 MG PO; +MIRTAZAPINE7.5 MG PO; +TRAZODONE HCL50 MG PO
[2020-07-05 04:29] VITALS: BP 139/51
== END 2020-07-05 05:45 ==
LOC: ER 04:24
DX: S00.03XA Contusion of scalp, initial encounter (principal); E11.9 Type 2 diabetes mellitus without complications; I25.2 Old myocardial infarction; Z79.899 Other long term (current) drug therapy; Z88.5 Allergy status to narcotic agent; W19.XXXA Unspecified fall, initial encounter; Y93.89 Activity, other specified; Y92.89 Other specified places as the place of occurrence of the external cause; Y99.8 Other external cause status